=== PATIENT | male | born 1955 | race Caucasian/White ===

== ENCOUNTER → 2022-08-07 10:53 | Outpatient (CLI) | payer OTHER, SELFPAY ==
--- NOTE | ~2022-08-07 | MR_ITS ---
EXAMINATION: MR lumbar spine wo con DATE: 08/07/2022 11:47 INDICATION: Acute bilateral low back pain with bilateral sciatica. TECHNIQUE: Magnetic resonance imaging (MRI) of the lumbar spine was performed without intravenous con trast. Sequences included sagittal T2-weighted FSE, sagittal T2-weighted FS FSE, sagittal T1-weighted FSE, and axial T2-weighted FSE. COMPARISON: None FINDINGS: Bone alignment is normal. There is a chronic compression fracture of T11 with 2/5 loss of h eight. There are hemangiomas in T12, L1, and L2 vertebral bodies. Intervertebral disc heights are nor mal. The distal spinal cord signal intensity is normal. The conus medullaris is at T12-L1. The follow ing disc levels are specifically discussed: L1-L2: The disc does not extend beyond the endplate margin. There is moderate bilateral facet joint o steoarthritis. There is no neural foraminal stenosis. There is no central canal stenosis. L2-L3: The disc does not extend beyond the endplate margin. There is severe right and mild left facet joint osteoarthritis. There is no neural foraminal stenosis. There is no central canal stenosis. L3-L4: The disc is bulging and has an annular fissure. There is moderate bilateral facet joint osteoa rthritis. There is mild bilateral neural foraminal stenosis. There is mild central canal stenosis. L4-L5: The disc is bulging and has an annular fissure. There is mild bilateral facet joint osteoarthr itis. There is mild bilateral neural foraminal stenosis. There is mild central canal stenosis. L5-S1: The disc is bulging and has an annular fissure. There is mild bilateral facet joint osteoarthr itis. There is mild bilateral neural foraminal stenosis. There is mild central canal stenosis. IMPRESSION: 1. Mild lumbar spondylosis. Reviewed, dictated and finalized at location A. IMPRESSION: 1. Mild lumbar spondylosis.
== END ==
DX: M54.42 Lumbago with sciatica, left side (principal); M54.41 Lumbago with sciatica, right side; M43.9 Deforming dorsopathy, unspecified; M47.896 Other spondylosis, lumbar region
CPT/HCPCS: 72148

== ENCOUNTER → 2022-11-14 09:44 | Outpatient (CLI) | payer OTHER, SELFPAY ==
--- NOTE | ~2022-11-14 | MR_ITS ---
MRI of the cervical spine Clinical History: Neck pain Technique: Axial T2-weighted and gradient images, and sagittal T1-weighted, T2-weighted, and STIR julisa ges were acquired. Findings: There is no fracture or subluxation of the cervical spine. Vertebral bodies maintain normal height and alignment. No suspicious bone marrow signal abnormality seen. At C2-C3, there is no disc bulge or herniation. No spinal canal stenosis, cord compression, or neural foraminal narrowing. At C3-C4, there is no disc bulge or herniation. No spinal canal stenosis or cord compression. Suspect ed mild right neural foraminal narrowing with mild right facet arthropathy. Left neural foramen prese rved. At C4-C5, there is mild degenerative disc narrowing. No disc bulge or herniation. No spinal canal brian nosis, cord compression, or definite neural foraminal narrowing. At C5-C6, there is moderate to advanced degenerative disc narrowing with minimal disc osteophyte comp louise. No jimmy central canal stenosis or cord compression. Neural foramina are probably preserved. At C6-C7, there is no disc bulge or herniation. No spinal canal stenosis, cord compression, or neural foraminal narrowing. No abnormal signal seen in the spinal cord. Paravertebral soft tissues are unremarkable. Impression: Mild degenerative spondylosis, as above. Reviewed, dictated and finalized at [facility]. Impression: Mild degenerative spondylosis, as above.
== END ==
DX: M47.22 Other spondylosis with radiculopathy, cervical region (principal)
CPT/HCPCS: 72141

== ENCOUNTER → 2022-12-02 08:09 | Outpatient (CLI) | payer OTHER, SELFPAY ==
--- NOTE | ~2022-12-02 | MR_ITS ---
EXAMINATION: MR knee RT wo con DATE: 12/02/2022 08:51 INDICATION: Right knee pain TECHNIQUE: Magnetic resonance imaging (MRI) of the right knee was performed without intravenous contr ast. Sequences included coronal PD-weighted FSE, coronal PD-weighted FS FSE, sagittal T2-weighted FS E, sagittal PD-weighted FS FSE and axial PD weighted fat saturated FSE. COMPARISON: None. FINDINGS: Medial compartment: Longitudinal horizontal tear extending to the inferior articular surface of the body and posterior ho rn of the medial meniscus. Partial-thickness chondral fissure along the lateral margin of the anterio r weightbearing medial femoral condyle. Small focus of subarticular edema without evident overlying c hondromalacia along the medial rim of the medial tibial plateau immediately underlying the anterior m argin of the meniscal tear likely related to altered stress distribution resulting from the torn meni scus. Articular cartilage appears otherwise normal. Lateral compartment: Lateral meniscus is normal. Articular cartilage is normal. Patellofemoral compartment: Articular cartilage is normal. Ligaments and tendons: Anterior and posterior cruciate ligaments are normal. The fibular collateral ligament is normal. Ther e is mild thickening and mild increased signal within the anterior margin of the proximal medial anahi ateral ligament without significant surrounding edema highly mild scarring related to chronic sprain. The extensor mechanism is normal. There is mild tendinopathy without tear of the distal semimembrano itzel and biceps femoris tendons. Fluid: Moderate-sized right knee joint effusion with mild synovitis at the margins of the suprapatellar pouc h and along the posterior margin of Hoffa's fat pad. No loose osteochondral bodies identified. There is a medial plical band which extends across the medial rim of the cephalad aspect of the medial troc hlea. Small Astorga's cyst. Osseous/other: Siphon the small focus of edema along the medial rim of the medial tibial plateau appears normal isiah ow signal throughout. No fracture or pathologic marrow replacing process. IMPRESSION: 1. Longitudinal horizontal tear of the body and posterior horn of the medial meniscus. 2. Small focus of mild partial-thickness chondral fissuring along the lateral margin of the anterior weightbearing medial femoral condyle. Articular cartilage in the knee appears otherwise preserved. 3. Mild semimembranosus and biceps femoris tendinopathy without tear. 4. Moderate-sized right knee joint effusion. Reviewed, dictated and finalized at location B. IMPRESSION: 1. Longitudinal horizontal tear of the body and posterior horn of the medial me niscus. 2. Small focus of mild partial-thickness chondral fissuring along the lateral m argin of the anterior weightbearing medial femoral condyle. Articular cartilage in the knee appears otherwise preserved. 3. Mild semimembranosus and biceps femoris tendinopathy without tear. 4. Moderate-sized right knee joint effusion.
== END ==
PROVIDERS: Visit Provider Orthopaedic Surgery
DX: M25.461 Effusion, right knee (principal); S83.241A Other tear of medial meniscus, current injury, right knee, initial encounter; X58.XXXA Exposure to other specified factors, initial encounter
CPT/HCPCS: 73721